=== PATIENT | female | born 1995 | race Caucasian/White ===

== ENCOUNTER 2020-10-09 14:41 | Outpatient (REF) | payer MEDICAID, SELFPAY ==
[2020-10-12 10:01] LABS: COVID-19 RT-PCR Result NEGATIVE (Negative)
== END 2020-10-09 15:01 ==
LOC: NCHCN 14:41
PROVIDERS: PCP Nurse Practitioner Family; Visit Provider Nurse Practitioner Family
DX: Z20.828 Contact with and (suspected) exposure to other viral communicable diseases (principal)
CPT/HCPCS: U0003

== ENCOUNTER 2021-01-13 17:53 | Outpatient (REF) | payer MEDICAID, SELFPAY ==
[2021-01-13 20:50] LABS: C-Reactive Protein 0.37 mg/dL (0.0-0.3)
[2021-01-14 16:53] LABS: ESR 15 mm/hr (<or=20)
[2021-01-16 05:46] LABS: Vitamin D 25 Total 48.4 ng/ml (30-100)
== END 2021-01-13 17:54 | disposition home or self-care (01) ==
LOC: NCHCN 17:53
PROVIDERS: PCP Nurse Practitioner Family; Visit Provider Nurse Practitioner Family
DX: F31.9 Bipolar disorder, unspecified (principal); E55.9 Vitamin D deficiency, unspecified; R79.82 Elevated C-reactive protein (CRP)
CPT/HCPCS: 82306; 85652; 86140

== ENCOUNTER 2025-06-11 18:10 | Outpatient (REF) | payer MEDICAID, SELFPAY ==
[2025-06-11 21:38] LABS: HCT 41.0 % (36.0-46.0); HGB 14.1 g/dL (11.2-15.7); MCH 29.1 pg (27.0-33.0); MCHC 34.4 % (32.0-36.0); MCV 85 fL (80-95); MPV 10.7 fL (8.0-11.0); Platelet Count 316 10^3/uL (130-400); RBC 4.84 10^6/uL (3.93-5.22); RDW 11.8 % (11.7-14.6); RDW-SD 35.7 fL; WBC 7.57 10^3/uL (4.4-10.8)
[2025-06-11 22:27] LABS: ALT 24 U/L (14-59); AST 21 U/L (15-37); Albumin 3.6 g/dL (3.4-5.0); Alkaline Phosphatase 90 U/L (46-116); Anion Gap 9.3 mmol/L (3-11); BUN 15 mg/dL (7-18); Bilirubin, Total 0.3 mg/dL (0.2-1.0); CO2 25.7 mmol/L (21.0-32.0); Calcium 9.3 mg/dL (8.5-10.1); Calculated LDL 112 mg/dL (<100); Chloride 105 mmol/L (98-107); Cholesterol 210 mg/dL (<200); Estimated GFR 117.77 (mL/min/1.73m2); Glucose 90 mg/dL (74-106); HDL Cholesterol 68 mg/dL (>or=50); Potassium 4.2 mmol/L (3.5-5.1); Sodium 140 mmol/L (136-145); TSH (W/Ref FT4) 1.80 uIU/mL (0.36-3.74); Total Protein 7.6 g/dL (6.4-8.2); Triglyceride 153 mg/dL (<150); Vitamin D 25 Total 22 ng/mL (30-100)
== END 2025-06-11 18:11 | disposition home or self-care (01) ==
LOC: NCHCN 18:10
PROVIDERS: PCP Nurse Practitioner Family; Visit Provider Family Medicine
DX: E66.9 Obesity, unspecified (principal); E55.9 Vitamin D deficiency, unspecified; R53.83 Other fatigue; Z13.220 Encounter for screening for lipoid disorders
CPT/HCPCS: 80053; 80061; 82306; 85027; 84443